=== PATIENT | female | born 1955 | race Caucasian/White ===

== ENCOUNTER 2017-01-04 00:33 | Observation (INO) | payer MEDICARE ==
[~2017-01-04] VITALS: Ht 152.4 cm; Wt 50.9 kg
[2017-01-04] VITALS (8 sets, daily range): BP systolic 114–172; BP diastolic 63–83; PULSE 61–70; RESP 16–18; TEMP 98.3–98.7; O2SAT 96–98
[2017-01-04] MEDS ORDERED: SODIUM CHLORID 0.9% 500 ML INJ 500 ML IV ONE (01:00)
[2017-01-04] MEDS ORDERED: MORPHINE SULFATE 4 MG/ML INJ IV PUSH ONE (01:00)
--- NOTE | 2017-01-04 01:01 | PD ---
HPI Chief Complaint: Chest Pain Time Seen by Provider: 00:45 Travel History International Travel<30 days: No Contact w/Intl Traveler<30days: No Traveled to known affect area: No History of Present Illness HPI Patient is a 61-year-old female with history of hypertension, hyperlipidemia, diabetes, coronary disease with cardiac stents, mechanical mitral valve currently on Coumadin who presents to emergency room with complaints of chest pain. Patient reports that she began having chest pain at an hour after she had dinner today. Reports the chest pain was substernal, reports that she felt a pressure to her chest with diaphoresis and nausea with no vomiting. Patient reports that she thought that her symptoms related to indigestion as she took a sublingual nitroglycerin with no relief of symptoms. Patient reports that she then began to have epigastric pain, reports that she did take a Tums and did feel little better. Patient reports that shortly thereafter, she began to have increased pains going to her back. Patient was concerned as she has history of coronary disease with history of cardiac stents in the past. Patient reports that she does see a prop setter in [facility], Dr. Nicolas. Patient reports that she him last week and reports that she had an echo performed which she was told was normal. Patient reports that she has no chest pain at this time, reports that she does have some back pain. Patient here for evaluation of her symptoms. PFSH Past Medical History Heart Rhythm Problems: Yes Cardiac Catheterization: Yes High Cholesterol: Yes Coronary Artery Disease: Yes Diabetes: Yes Hypertension: Yes Past Surgical History Cardiac Surgery: Yes (mechanical mitral valve repair) Coronary Stent: Yes Social History Tobacco Use: No Allergies-Medications (Allergen,Severity, Reaction): Coded Allergies: No Known Allergies (Unverified , 01/04/17) Reported Meds & Prescriptions Reported Meds & Active Scripts Active Reported Alprazolam 0.25 Mg Tab 0.25 Mg PO BID PRN Spironolactone 25 Mg Tab 25 Mg PO DAILY Magnesium Oxide 250 Mg Tab 400 Mg PO DAILY Atorvastatin (Atorvastatin Calcium) 20 Mg Tab 10 Mg PO HS Ambien (Zolpidem Tartrate) 5 Mg Tab 5 Mg PO HS PRN Metformin (Metformin HCl) 500 Mg Tab 500 Mg PO BIDPC With meals Losartan (Losartan Potassium) 25 Mg Tab 5 Mg PO DAILY Lasix (Furosemide) 20 Mg Tab 20 Mg PO DAILY Carvedilol 6.25 Mg Tab 6.25 Mg PO BID Digitek (Digoxin) 0.125 Mg Tab 0.125 Mg PO DAILY Gemfibrozil 600 Mg Tab 600 Mg PO BIDAC Take 30 minutes prior to breakfast and dinner. Aspirin 81 Mg Tabdr 81 Mg PO DAILY Coumadin (Warfarin) 5 Mg Tab 5 Mg PO E,,SAT,SUN Coumadin (Warfarin) 2.5 Mg Tab 2.5 Mg PO SUN, SUN, SUN Review of Systems General / Constitutional: No: Fever Eyes: No: Visual changes HENT: No: Headaches Cardiovascular: Positive: Chest Pain or Discomfort, Diaphoresis Respiratory: Positive: Shortness of Breath Gastrointestinal: Positive: Nausea, No: Abdominal Pain Genitourinary: No: Dysuria Musculoskeletal: No: Pain Skin: No Rash Neurologic: No: Weakness Psychiatric: No: Depression Endocrine: No: Polydipsia Hematologic/Lymphatic: No: Easy Bruising Physical Exam Narrative GENERAL: No acute distress, nontoxic SKIN: Warm and dry. HEAD: Atraumatic. Normocephalic. EYES: Pupils equal and round. No scleral icterus. No injection or drainage. ENT: No nasal bleeding or discharge. Mucous membranes pink and moist. NECK: Trachea midline. No JVD. CARDIOVASCULAR: Regular rate and rhythm. Patient with 4/6 systolic murmur RESPIRATORY: No accessory muscle use. Clear to auscultation. Breath sounds equal bilaterally. GASTROINTESTINAL: Abdomen soft, non-tender, nondistended. Hepatic and splenic margins not palpable. MUSCULOSKELETAL: No obvious deformities. No clubbing. No cyanosis. No edema. NEUROLOGICAL: Awake and alert. No obvious cranial nerve deficits. Motor grossly within normal limits. Normal speech. PSYCHIATRIC: Appropriate mood and affect; insight and judgment normal. Data Data Last Documented VS Vital Signs Date Time Temp Pulse Resp B/P Pulse Ox O2 Delivery O2 Flow Rate FiO2 01/04/17 02:07 65 16 118/65 98 Room Air Orders B-Type Natriuretic Peptide (01/04/17 00:52) Ckmb (Isoenzyme) Profile (01/04/17 00:52) Complete Blood Count With Diff (01/04/17 00:52) Comprehensive Metabolic Panel (01/04/17 00:52) Magnesium (Mg) (01/04/17 00:52) Prothrombin Time / Inr (Pt) (01/04/17 00:52) Act Partial Throm Time (Ptt) (01/04/17 00:52) Troponin I (01/04/17 00:52) Lipase (01/04/17 00:52) Chest, Single Ap (01/04/17 00:52) Ecg Monitoring (01/04/17 00:52) Bilateral Bp Monitoring (01/04/17 00:52) Iv Access Insert/Monitor (01/04/17 00:52) Oximetry (01/04/17 00:52) Sodium Chlorid 0.9% 500 Ml Inj (Ns 500 M (01/04/17 01:00) Morphine Inj (Morphine Inj) (01/04/17 01:00) Ct Thorax/ Chest Wo Iv Contras (01/04/17 ) Ct Abd/Pel W/O Iv Contrast (01/04/17 ) Drug Screen, Random Urine (01/04/17 02:16) Aspirin (Aspirin) (01/04/17 03:00) Labs Laboratory Tests Test 01/04/17 00:45 White Blood Count 9.3 TH/MM3 Red Blood Count 3.92 MIL/MM3 Hemoglobin 11.4 GM/DL Hematocrit 34.0 % Mean Corpuscular Volume 86.6 FL Mean Corpuscular Hemoglobin 29.0 PG Mean Corpuscular Hemoglobin 33.5 % Concent Red Cell Distribution Width 15.5 % Platelet Count 217 TH/MM3 Mean Platelet Volume 11.0 FL CBC Comment AUTO DIFF Differential Total Cells 100 Counted Neutrophils % (Manual) 78 % Lymphocytes % 11 % Monocytes % 2 % Eosinophils % 9 % Neutrophils # (Manual) 7.3 TH/MM3 Differential Comment FINAL DIFF MANUAL Atypical Lymphocytes % Platelet Estimate NORMAL Platelet Morphology Comment NORMAL Ovalocytes 1+ Prothrombin Time 19.6 SEC Prothromb Time International 1.7 RATIO Ratio Activated Partial 37.0 SEC Thromboplast Time Sodium Level 139 MEQ/L Potassium Level 4.3 MEQ/L Chloride Level 100 MEQ/L Carbon Dioxide Level 28.4 MEQ/L Anion Gap 11 MEQ/L Blood Urea Nitrogen 46 MG/DL Creatinine 1.80 MG/DL Estimat Glomerular Filtration 29 ML/MIN Rate Random Glucose 191 MG/DL Calcium Level 9.1 MG/DL Magnesium Level 2.2 MG/DL Total Bilirubin 0.5 MG/DL Aspartate Amino Transf 21 U/L (AST/SGOT) Alanine Aminotransferase 31 U/L (ALT/SGPT) Alkaline Phosphatase 59 U/L Total Creatine Kinase 50 U/L Troponin I LESS THAN 0.02 NG/ML B-Type Natriuretic Peptide 100 PG/ML Total Protein 8.5 GM/DL Albumin 4.5 GM/DL Lipase 773 U/L [facility] Medical Decision Making Medical Screen Exam Complete: Yes Emergency Medical Condition: Yes Interpretation(s) EKG at 0038: Normal sinus rhythm at 67 beats minute, QT/QTc 372/384, nonspecific ST segment changes Vital Signs Date Time Temp Pulse Resp B/P Pulse Ox O2 Delivery O2 Flow Rate FiO2 01/04/17 00:49 69 172/83 Differential Diagnosis ACS, arrhythmia, GERD, aortic dissection, PE Narrative Course Patient is a 61-year-old female who presents to emergency room with complaints of chest pain. Patient reports that she began having chest pain at an hour after she had dinner today. Reports the chest pain was substernal, reports that she felt a pressure to her chest with diaphoresis and nausea with no vomiting. Patient reports that she thought that her symptoms related to indigestion as she took a sublingual nitroglycerin with no relief of symptoms. Patient reports that she then began to have epigastric pain, reports that she did take a Tums and did feel little better. Patient reports that shortly thereafter, she began to have increased pains going to her back. Patient was concerned as she has history of coronary disease with history of cardiac stents in the past. Patient reports that she does see a prop setter in [facility] , Dr. Nicolas. Patient reports that she him last week and reports that she had an echo performed which she was told was normal. Patient reports that she has no chest pain at this time, reports that she does have some back pain. EKG obtained upon presentation to the emergency room, patient denies chest pain at this time, reports that she is having back pain. She was placed on a contract loader. Labs as well as x-ray of the chest ordered. CT ordered for evaluation of possible aortic dissection given her chest pain going to her back. Laboratory Tests Test 01/04/17 00:45 White Blood Count 9.3 TH/MM3 (4.0-11.0) Red Blood Count 3.92 MIL/MM3 (4.00-5.30) Hemoglobin 11.4 GM/DL (11.6-15.3) Hematocrit 34.0 % (35.0-46.0) Mean Corpuscular Volume 86.6 FL (80.0-100.0) Mean Corpuscular Hemoglobin 29.0 PG (27.0-34.0) Mean Corpuscular Hemoglobin 33.5 % Concent (32.0-36.0) Red Cell Distribution Width 15.5 % (11.6-17.2) Platelet Count 217 TH/MM3 (150-450) Mean Platelet Volume 11.0 FL (7.0-11.0) CBC Comment AUTO DIFF Differential Total Cells 100 Counted Neutrophils % (Manual) 78 % (16-70) Lymphocytes % 11 % (9-44) Monocytes % 2 % (0-8) Eosinophils % 9 % (0-4) Neutrophils # (Manual) 7.3 TH/MM3 (1.8-7.7) Differential Comment FINAL DIFF MANUAL Atypical Lymphocytes % (0-0) Platelet Estimate NORMAL (NORMAL) Platelet Morphology Comment NORMAL (NORMAL) Ovalocytes 1+ (NORMAL) Prothrombin Time 19.6 SEC (9.8-11.6) Prothromb Time International 1.7 RATIO Ratio Activated Partial 37.0 SEC Thromboplast Time (24.3-30.1) Sodium Level 139 MEQ/L (136-145) Potassium Level 4.3 MEQ/L (3.5-5.1) Chloride Level 100 MEQ/L (98-107) Carbon Dioxide Level 28.4 MEQ/L (21.0-32.0) Anion Gap 11 MEQ/L (5-15) Blood Urea Nitrogen 46 MG/DL (7-18) Creatinine 1.80 MG/DL (0.50-1.00) Estimat Glomerular Filtration 29 ML/MIN (>89) Rate Random Glucose 191 MG/DL (74-106) Calcium Level 9.1 MG/DL (8.5-10.1) Magnesium Level 2.2 MG/DL (1.5-2.5) Total Bilirubin 0.5 MG/DL (0.2-1.0) Aspartate Amino Transf 21 U/L (15-37) (AST/SGOT) Alanine Aminotransferase 31 U/L (10-53) (ALT/SGPT) Alkaline Phosphatase 59 U/L (45-117) Total Creatine Kinase 50 U/L (26-192) Troponin I LESS THAN 0.02 NG/ML (0.02-0.05) B-Type Natriuretic Peptide 100 PG/ML (0-100) Total Protein 8.5 GM/DL (6.4-8.2) Albumin 4.5 GM/DL (3.4-5.0) Lipase 773 U/L (73-393) Last Impressions Chest X-Ray 01/04/17 0052 Signed Impressions: Service Date/Time: December 00:58 - CONCLUSION: No acute cardiopulmonary disease identified. Bernard Arana MD Chest CT 01/04/17 0000 Signed Impressions: Service Date/Time: December 01:47 - CONCLUSION: 1. Diffuse aortic calcification and coronary artery calcification. Aortic diameter are within normal limits. 2. Mild pulmonary emphysema and lower lobe atelectasis. Bernard Arana MD patient feeling much better at this time, cp free. i did review all labs and studies with patient in detail. reports that as far as her kidneys are concerned , her recent labs did show elevated kidney numbers. plan to obs for chest pain case reviewed with dr santana who accepts pt to service Diagnosis Primary Impression: Chest pain Qualified Code: R07.9 - Chest pain, unspecified type Additional Impressions: Renal insufficiency Subtherapeutic anticoagulation Admitting Information Admitting Physician Requests: Observation Chrissy Gong DO Jan 04, 2017 01:01 Chrissy Gong DO Jan 04, 2017 01:01
[2017-01-04] MEDS ORDERED: AMBI5TAB PO (01:02)
[2017-01-04] MEDS ORDERED: COUM5TAB PO (01:02)
[2017-01-04] MEDS ORDERED: ALPR1TAB3 PO (01:02)
[2017-01-04] MEDS ORDERED: COUM2.5T PO (01:02)
[2017-01-04] MEDS ORDERED: FURO1TAB62 PO (01:02)
[2017-01-04] MEDS ORDERED: CARV6.252 PO (01:02)
[2017-01-04] MEDS ORDERED: DIGO1TAB59 PO (01:02)
[2017-01-04] MEDS ORDERED: SPIR25TA PO (01:02)
[2017-01-04] MEDS ORDERED: MAGN250T11 PO (01:02)
[2017-01-04] MEDS ORDERED: GEMF600T PO (01:02)
[2017-01-04] MEDS ORDERED: METF500T PO (01:02)
[2017-01-04] MEDS ORDERED: LOSA25TA PO (01:02)
[2017-01-04] MEDS ORDERED: ASPI1TAB69 PO (01:02)
[2017-01-04] MEDS ORDERED: ATOR20TA15 PO (01:02)
[2017-01-04 01:18] LABS: MEAN CELL VOLUME 86.6 FL (80.0-100.0); MEAN CORPUSCULAR HGB CONC 33.5 % (32.0-36.0); PLATELET COUNT 217 TH/MM3 (150-450); RED BLOOD COUNT 3.92 MIL/MM3 (4.00-5.30); RED CELL DISTRIBUTION WIDTH 15.5 % (11.6-17.2); WHITE BLOOD COUNT 9.3 TH/MM3 (4.0-11.0)
--- NOTE | 2017-01-04 01:21 | RADHPO ---
EXAM DATE/TIME: 01/04/2017 00:58 [facility] COMPARISON: No previous studies available for comparison. INDICATIONS : Chest pain starting today MEDICAL HISTORY : Cardiovascular disease. SURGICAL HISTORY : CABG. Heart valve replacement ENCOUNTER: Initial ACUITY: 1 day PAIN SCORE: 6/10 LOCATION: Bilateral chest FINDINGS: Single AP view of the chest. Median sternotomy wires are present. The lungs are clear. Cardiomediasti nal silhouette within normal limits. No evidence of pleural effusion or pneumothorax. CONCLUSION: No acute cardiopulmonary disease identified. Bernard Arana MD on January 04, 2017 at 1:19 Board Certified Radiologist. This report was verified electronically.
[2017-01-04] MEDS ORDERED: ALPR0.25 PO (01:22)
[2017-01-04 01:27] LABS: CHLORIDE 100 MEQ/L (98-107); POTASSIUM 4.3 MEQ/L (3.5-5.1); SODIUM (NA) 139 MEQ/L (136-145)
[2017-01-04 01:31] LABS: ANION GAP 11 MEQ/L (5-15); BICARBONATE 28.4 MEQ/L (21.0-32.0); BLOOD UREA NITROGEN 46 MG/DL (7-18); MAGNESIUM 2.2 MG/DL (1.5-2.5)
[2017-01-04 01:33] LABS: INTERNATIONAL NORMALIZED RATIO 1.7 RATIO; PROTHROMBIN TIME - PATIENT 19.6 SEC (9.8-11.6)
[2017-01-04 01:34] LABS: ALT (GPT) 31 U/L (10-53); AST (GOT) 21 U/L (15-37); GLOMERULAR FILTRATION RATE 29 ML/MIN (>89)
[2017-01-04 01:36] LABS: TOTAL BILIRUBIN ADULT 0.5 MG/DL (0.2-1.0)
[2017-01-04 01:37] LABS: ALKALINE PHOSPHATASE 59 U/L (45-117)
[2017-01-04 01:46] LABS: HEMO FLAGS AUTO DIFF
[2017-01-04 01:48] LABS: CREATINE KINASE 50 U/L (26-192)
[2017-01-04 02:19] LABS: EOSINOPHILS 9 % (0-4); NEUTROPHIL # MANUAL DIFF 7.3 TH/MM3 (1.8-7.7); POLYS (SEG NEUTROPHILS) 78 % (16-70); WBC DIFF SAMPLE 100
[2017-01-04 02:21] LABS: OVALOCYTES 1+ (NORMAL); PLATELET ESTIMATE SMEAR NORMAL (NORMAL); PLATELET MORPHOLOGY NORMAL (NORMAL); SCAN/DIFF FINAL DIFF MANUAL
--- NOTE | 2017-01-04 02:37 | RADHPO ---
EXAM DATE/TIME: 01/04/2017 01:47 [facility] COMPARISON: No previous studies available for comparison. INDICATIONS : Substernal chest pain that radiates to back and epigastric abdomen. Evaluate for aneurysm and diss ection. RADIATION DOSE: 8.42 CTDIvol (mGy) MEDICAL HISTORY : Hypertension. Diabetes mellitus type 2. SURGICAL HISTORY : CABG Mitral valce repair and replacement. ENCOUNTER: Initial ACUITY: 1 day PAIN SCALE: 5/10 LOCATION: chest TECHNIQUE: Volumetric scanning of the chest was performed. Using automated exposure control and adjustment of t he mA and/or kV according to patient size, radiation dose was kept as low as reasonably achievable to obtain optimal diagnostic quality images. FINDINGS: LUNGS: Mild opacity at the dependent lung bases likely representing atelectasis. Mild pulmonary parenchymal emphysema. PLEURAE: There is no pleural thickening or pleural effusion. MEDIASTINUM: Diffuse aortic calcification. Left subclavian stent. Aortic diameter is within normal limits. Noncont rast CT is not sensitive for detection of aortic dissection. Multiple approximately 1 cm mediastinal lymph nodes, likely reactive. Coronary artery calcifications noted. AXILLAE: Within normal limits. No lymphadenopathy. MUSCULOSKELETAL: Within normal limits for patient age. MISCELLANEOUS: Abdomen will be fully described on abdomen CT report. CONCLUSION: 1. Diffuse aortic calcification and coronary artery calcification. Aortic diameter are within normal limits. 2. Mild pulmonary emphysema and lower lobe atelectasis. Bernard Arana MD on January 04, 2017 at 2:31 Board Certified Radiologist. This report was verified electronically.
--- NOTE | 2017-01-04 02:43 | RADHPO ---
EXAM DATE/TIME: 01/04/2017 01:47 [facility] COMPARISON: No previous studies available for comparison. INDICATIONS : Substernal chest pain that radiates to epigastric abdomen. Evaluate aneurysm and dissection. ORAL CONTRAST: No oral contrast ingested. RADIATION DOSE: 8.42 CTDIvol (mGy) ; Combined studies - Thorax/Abdomen/Pelvis MEDICAL HISTORY : Diabetes mellitus type 2. Hypertension. SURGICAL HISTORY : CABG Mitral valve repair and replacement. ENCOUNTER: Initial ACUITY: 1 day PAIN SCALE: 5/10 LOCATION: epigastric abdomen TECHNIQUE: Volumetric scanning of the abdomen and pelvis was performed. Using automated exposure control and ad justment of the mA and/or kV according to patient size, radiation dose was kept as low as reasonably achievable to obtain optimal diagnostic quality images. FINDINGS: LOWER LUNGS: Lower lobe atelectasis. LIVER: Homogeneous density without lesion. There is no dilation of the biliary tree. No calcified gallston es. SPLEEN: Scattered rounded hypodensities in the spleen with the largest measuring 1.3 cm centrally. Nonspecifi c but statistically most likely to represent cysts or hemangiomas. PANCREAS: Within normal limits. KIDNEYS: Normal in size and shape. There is no mass, stone, or hydronephrosis. ADRENAL GLANDS: Within normal limits. VASCULAR: Diffuse aortic calcification. Aortic diameter are within normal limits. BOWEL/MESENTERY: No evidence of bowel dilatation. No free air or free fluid. Appendix not identified. ABDOMINAL WALL: Within normal limits. RETROPERITONEUM: There is no lymphadenopathy. BLADDER: No wall thickening or mass. REPRODUCTIVE: Within normal limits. INGUINAL: There is no lymphadenopathy or hernia. MUSCULOSKELETAL: Within normal limits for patient age. CONCLUSION: 1. No acute findings in the abdomen and pelvis. 2. Scattered nonspecific hypodensities in the spleen. These findings could be evaluated with greater specificity using contrast-enhanced MRI abdomen. 3. Diffuse atherosclerotic disease. Bernard Arana MD on January 04, 2017 at 2:35 Board Certified Radiologist. This report was verified electronically.
[2017-01-04] MEDS ORDERED: ASPIRIN 325 MG TAB PO ONE (03:00)
[2017-01-04] MEDS ORDERED: SODIUM CHLORIDE 0.9% FLUSH 5 ML FLUSH IVF PRN (04:45)
[2017-01-04] MEDS ORDERED: ALPRAZolam 0.25 MG TAB PO PRN (05:45)
[2017-01-04 05:53] LABS: CREATINE KINASE 41 U/L (26-192)
[2017-01-04] MEDS ORDERED: GLUCAGON 1 MG/ML VIAL OTHER PRN (06:00)
[2017-01-04] MEDS ORDERED: DEXTROSE 50% IN WATER 50 ML VIAL(D50) IV PUSH PRN (06:00)
[2017-01-04] MEDS: INSULIN ASPART SUPPLEMENTAL SCALE SQ SCH ×2 (06:29→11:00)
[2017-01-04] MEDS ORDERED: GEMFIBROZIL 600 MG TAB PO SCH (07:00)
[2017-01-04] MEDS ORDERED: DIGOXIN 0.125 MG TAB PO SCH (09:00)
[2017-01-04] MEDS ORDERED: ASPIRIN EC 81 MG TABEC PO SCH (09:00)
[2017-01-04] MEDS ORDERED: SODIUM CHLORIDE 0.9% FLUSH 5 ML FLUSH IVF SCH (09:00)
[2017-01-04] MEDS ORDERED: LOSARTAN 25 MG TAB PO SCH (09:00)
[2017-01-04] MEDS ORDERED: CARVEDILOL 6.25 MG TAB PO SCH (09:00)
[2017-01-04] MEDS ORDERED: SPIRONOLACTONE 25 MG TAB PO SCH (09:00)
[2017-01-04] MEDS ORDERED: FUROSEMIDE 20 MG TAB PO SCH (09:00)
[2017-01-04 10:08] LABS: CREATINE KINASE 41 U/L (26-192)
--- NOTE | 2017-01-04 11:47 | HHI.HP ---
[facility] Service [facility] Primary Care Physician Non-Staff Admission Diagnosis Chest pain Diagnoses: (1) Chest pain Diagnosis: Principal (2) Azotemia Diagnosis: Principal (3) Coronary artery disease Diagnosis: Secondary (4) History of myocardial infarction Diagnosis: Secondary (5) Hypertension Diagnosis: Secondary (6) Chronic atrial fibrillation Diagnosis: Secondary (7) Hyperlipidemia Diagnosis: Secondary Chief Complaint: Chest discomfort Travel History International Travel<30 Days: No Contact w/Intl Traveler <30 Da: No Traveled to Known Affected Are: No History of Present Illness 61-year-old female with rather complex cardiac history with hypertension, hyperlipidemia, multiple myocardial infarctions, cardiac bypass surgery, mitral valve replacement who presented to hospital because of chest and abdominal discomfort. Patient states that she has normal state of health until yesterday after she ate dinner. She didn't approximate 6 PM and then roughly 1-2 hours later she started developing a pressure sensation in the middle part of her chest without any radiation, nausea, vomiting, diaphoresis, shortness of breath, dyspnea. The pressure sensation got worse where she started getting epigastric and abdominal discomfort with pressure. She took a nitroglycerin at home without any relief of her discomfort. She did take a Tums with improvement of the abdominal distention and discomfort. Patient states that he started developing pain in her back and she was concerned because her previous myocardial infarction presented with back pain. Because of those reasons the patient came to the hospital for evaluation. Patient had workup done emergency department did not have any acute abnormalities to indicate acute myocardial infarction. Patient recommended observation chest pain center. Upon evaluating the patient this morning she states that her symptoms have completely resolved. They indicate that the lens blank gauger does not want her to undergo any stress test. The patient states that she has had previous nuclear stress test with adverse reactions. She was told by her lens blank gauger that even if she does have a positive stress test that there is nothing else that they can do for her get she has had a significant bypass surgery, open heart with mitral valve replacement. Patient and Family does not want to pursue any further testing at this time. Review of Systems Constitutional: DENIES: Diaphoretic episodes, Fatigue, Fever, Weight gain, Weight loss, Chills, Dizziness, Change in appetite, Night Sweats Eyes: DENIES: Blurred vision, Diplopia, Eye inflammation, Eye pain, Vision loss , Double Vision Ears, nose, mouth, throat: DENIES: Vertigo, Nasal discharge, Throat pain, Ear Pain, Running Nose, Sinus Pain Respiratory: DENIES: Apneas, Cough, Snoring, Wheezing, Hemoptysis, Sputum production, Shortness of breath Cardiovascular: COMPLAINS OF: Chest pain (pressure sensation), DENIES: Palpitations, Syncope, Dyspnea on Exertion, Lower Extremity Edema, Orthopnea Gastrointestinal: COMPLAINS OF: Abdominal pain (bloating sensation), DENIES: Black stools, Bloody stools, Constipation, Diarrhea, Nausea, Vomiting, Difficulty Swallowing, Anorexia Neurologic: DENIES: Abnormal gait, Headache, Localized weakness, Paresthesias, Seizures, Speech Problems, Tremor, Poor Balance Past Family Social History Past Medical History Hypertension Hyperlipidemia Chronic atrial fibrillation Coronary artery disease Thyroid dysfunction, undergoing outpatient workup Diabetes Past Surgical History Coronary artery bypass surgery 3 vessel Mechanical mitral valve replacement Cardiac catheterization with stenting Appendectomy Ectopic removal Reported Medications Reported Meds & Active Scripts Active Reported Alprazolam 0.25 Mg Tab 0.25 Mg PO BID PRN Spironolactone 25 Mg Tab 25 Mg PO DAILY Magnesium Oxide 250 Mg Tab 400 Mg PO DAILY Atorvastatin (Atorvastatin Calcium) 20 Mg Tab 10 Mg PO HS Ambien (Zolpidem Tartrate) 5 Mg Tab 5 Mg PO HS PRN Metformin (Metformin HCl) 500 Mg Tab 500 Mg PO BIDPC With meals Losartan (Losartan Potassium) 25 Mg Tab 5 Mg PO DAILY Lasix (Furosemide) 20 Mg Tab 20 Mg PO DAILY Carvedilol 6.25 Mg Tab 6.25 Mg PO BID Digitek (Digoxin) 0.125 Mg Tab 0.125 Mg PO DAILY Gemfibrozil 600 Mg Tab 600 Mg PO BIDAC Take 30 minutes prior to breakfast and dinner. Aspirin 81 Mg Tabdr 81 Mg PO DAILY Coumadin (Warfarin) 5 Mg Tab 5 Mg PO E,,SAT,SUN Coumadin (Warfarin) 2.5 Mg Tab 2.5 Mg PO MON, WED, FRI Allergies: Coded Allergies: No Known Allergies (Unverified , 01/04/17) Family History Reviewed and significant for heart disease, brother with cancer Social History Patient denies any tobacco, alcohol or illicit drugs Physical Exam Vital Signs Vital Signs Date Time Temp Pulse Resp B/P Pulse Ox O2 Delivery O2 Flow Rate FiO2 01/04/17 08:00 98.7 67 16 117/63 98 01/04/17 08:00 96 21 01/04/17 07:12 61 01/04/17 04:38 97 01/04/17 04:17 70 114/65 97 Room Air 01/04/17 02:07 65 16 118/65 98 Room Air 01/04/17 00:49 69 172/83 01/04/17 00:40 Room Air 01/04/17 00:39 172/83 166/78 Physical Exam GENERAL: Well-developed, well-nourished, in no acute distress. alert and orientated HEENT: Head is normocephalic without any lesions or masses noted. Facial features are symmetric. Eyes: Pupils equal round reactive to light. Extraocular muscles are intact. Conjunctivae were clear. Oropharyngeal: Pharynx without any erythema edema. Tongue is midline without deviation. Buccal mucosa is moist without any masses or lesions NECK: Supple without any masses. Trachea midline no deviation. No JVD, no bruits are appreciated CARDIAC: Irregular rhythm, irregular rate. S1/S2 are heard. 2/6 ejection murmur , no gallops or rubs. Valve click noted LUNGS: Clear to auscultation bilaterally. No wheeze, rhonchi or rales. No use of accessory muscles on inspiration or expiration. ABDOMEN: Soft, nontender. Nondistended. Bowel sounds heard in all 4 quadrants. No organomegaly or masses. Negative rebound, negative guarding EXTREMITIES: No edema, pulses are equal bilaterally. No cyanosis or clubbing NEUROLOGY: Mood and affect appear appropriate. Cranial nerves II through XII grossly intact. Muscle strength 5/5 in upper and lower extremities bilaterally. Deep tendon reflexes are 2+ in upper and lower extremities bilaterally. Laboratory Laboratory Tests Test 01/04/17 01/04/17 01/04/17 00:45 05:07 08:30 White Blood Count 9.3 Red Blood Count 3.92 Hemoglobin 11.4 Hematocrit 34.0 Mean Corpuscular Volume 86.6 Mean Corpuscular Hemoglobin 29.0 Mean Corpuscular Hemoglobin 33.5 Concent Red Cell Distribution Width 15.5 Platelet Count 217 Mean Platelet Volume 11.0 CBC Comment AUTO DIFF Differential Total Cells 100 Counted Neutrophils % (Manual) 78 Lymphocytes % 11 Monocytes % 2 Eosinophils % 9 Neutrophils # (Manual) 7.3 Differential Comment FINAL DIFF MANUAL Atypical Lymphocytes Platelet Estimate NORMAL Platelet Morphology Comment NORMAL Ovalocytes 1+ Prothrombin Time 19.6 Prothromb Time International 1.7 Ratio Activated Partial 37.0 Thromboplast Time Sodium Level 139 Potassium Level 4.3 Chloride Level 100 Carbon Dioxide Level 28.4 Anion Gap 11 Blood Urea Nitrogen 46 Creatinine 1.80 Estimat Glomerular Filtration 29 Rate Random Glucose 191 Calcium Level 9.1 Magnesium Level 2.2 Total Bilirubin 0.5 Aspartate Amino Transf 21 (AST/SGOT) Alanine Aminotransferase 31 (ALT/SGPT) Alkaline Phosphatase 59 Total Creatine Kinase 50 41 41 Troponin I LESS THAN 0.02 LESS THAN 0.02 LESS THAN 0.02 B-Type Natriuretic Peptide 100 Total Protein 8.5 Albumin 4.5 Lipase 773 Result Diagram: 01/04/17 0045 01/04/17 0045 Imaging Last Impressions Chest X-Ray 01/04/17 0052 Signed Impressions: Service Date/Time: December 00:58 - CONCLUSION: No acute cardiopulmonary disease identified. Bernard Arana MD Chest CT 01/04/17 0000 Signed Impressions: Service Date/Time: December 01:47 - CONCLUSION: 1. Diffuse aortic calcification and coronary artery calcification. Aortic diameter are within normal limits. 2. Mild pulmonary emphysema and lower lobe atelectasis. Bernard Arana MD Abdomen/Pelvis CT 01/04/17 0000 Signed Impressions: Service Date/Time: December 01:47 - CONCLUSION: 1. No acute findings in the abdomen and pelvis. 2. Scattered nonspecific hypodensities in the spleen. These findings could be evaluated with greater specificity using contrast-enhanced MRI abdomen. 3. Diffuse atherosclerotic disease. Bernard Arana MD Assessment and Plan Assessment and Plan Chest pain, atypical: Patient with increased risk factors to include age, female, history myocardial infarction, hypertension, hyperlipidemia, coronary artery disease, diabetes. Patient had been ruled out for any acute coronary event with serial cardiac enzymes which are negative, serial EKGs show atrial fibrillation without any changes. Discussed with the patient the need to pursue any underlying ischemia to include stress testing. Patient and family do not want to pursue that at this time. They state that her lens blank gauger's indicates that she should not undergo any stress testing. A lens blank gauger notified her that if there were any abnormalities nothing as could be done at this time due to her previous cardiac surgery. Patient and family are deferring further evaluation. I notified them of possible adverse outcomes to include acute myocardial infarction, upon leaving without full workup. They do understand. They're notified to follow-up with her lens blank gauger as soon as possible Azotemia, unknown whether acute versus chronic: Given the patient's medical history to be deduced that she has chronic kidney disease. Patient will need continued outpatient follow-up with her primary medical doctor. Hypertension, hyperlipidemia, chronic atrial fibrillation, coronary artery disease: Home medications have been continued. Continue anticoagulation. Patient will need continued outpatient follow-up by her primary medical doctor and lens blank gauger Diabetes: Metformin has been held. Accu-Cheks with sliding scale insulin DVT prevention: Patient is on Coumadin Written by Ronald Jonas PA-C, acting as scribe for Dr. Diane on 01/04/17 at 1215. The documentation accurately reflects the work and decisions performed face-to- face by Dr. Diane on 01/04/17 at 1215. Discharge disposition Discharge home in stable condition Activity: Ad nathanael. Diet: Healthy heart diet/diabetic diet Medications per medication reconciliation Follow-up with primary medical doctor in one week, lens blank gauger within the week Problem Qualifiers (1) Chest pain: Qualified Code: R07.9 - Chest pain, unspecified type (2) Coronary artery disease: Qualified Code: I25.10 - Coronary artery disease, angina presence unspecified, unspecified vessel or lesion type, unspecified whether little traverse or transplanted heart (3) Hypertension: Qualified Code: I15.9 - Secondary hypertension (4) Hyperlipidemia: Qualified Code: E78.5 - Hyperlipidemia, unspecified hyperlipidemia type Ronald Jonas Jan 04, 2017 11:47 Zarina Diane MD Jan 04, 2017 19:48
--- NOTE | 2017-01-04 11:49 | HHI.DCPOC ---
Discharge Care Plan Diagnosis: (1) Chest pain Goals to Promote Your Health * To prevent worsening of your condition and complications * To maintain your health at the optimal level Directions to Meet Your Goals Take your medications as prescribed Follow your dietary instruction Follow activity as directed Keep your appointments as scheduled Take your immunizations and boosters as scheduled If your symptoms worsen call your PCP, if no PCP go to Urgent Care Center or Emergency Room Smoking is Dangerous to Your Health. Avoid second hand smoke Call the 24-hour hour crisis hotline for domestic abuse at Ronald Jonas Jan 04, 2017 11:49
[2017-01-04] MEDS ORDERED: ATORVASTATIN 10 MG TAB PO SCH (21:00)
[2017-01-04] MEDS ORDERED: ATORVASTATIN 20 MG TAB PO SCH (21:00)
--- NOTE | 2017-01-04 21:07 | EKG ---
Date Performed: 01/04/2017 Time Performed: 08:34:04 PTAGE: 61 years EKG: Ectopica atrial rhythm PVC's Lateral ST-T changes may be due to myocardial ischemia Abnorma l ECG NO PREVIOUS TRACING Since previous tracing, no significant change noted DOCTOR: Traci Moreno Interpretating Date/Time 01/04/2017 21:07:46
--- NOTE | 2017-01-04 21:12 | EKG ---
Date Performed: 01/04/2017 Time Performed: 04:56:40 PTAGE: 61 years EKG: Ectopic atrial Rhythm with PVC(s). Possible inferior infarct - age undetermined Lateral ST- T changes may be due to myocardial ischemia Artifact Abnormal ECG Since PREVIOUS TRACING , no significant change noted DOCTOR: Traci Moreno Interpretating Date/Time 01/04/2017 21:11:19
--- NOTE | 2017-01-04 21:13 | EKG ---
Date Performed: 01/04/2017 Time Performed: 00:38:10 PTAGE: 61 years EKG: Sinus rhythm . Possible inferior infarct - age undetermined Lateral ST-T changes are nonspecific Abnormal ECG NO PREVIOUS TRACING DOCTOR: Traci Moreno Interpretating Date/Time 01/04/2017 21:12:34
== END 2017-01-04 13:04 | disposition home or self-care (01) ==
LOC: PHED 00:33 → PHEDA 03:07 → PH3A 04:23
PROVIDERS: ADMIT Hospitalist; ATTEND Hospitalist
DX: R07.89 Other chest pain (principal); R79.89 Other specified abnormal findings of blood chemistry; I12.9 Hypertensive chronic kidney disease with stage 1 through stage 4 chronic kidney disease, or unspecified chronic kidney disease; E11.22 Type 2 diabetes mellitus with diabetic chronic kidney disease; N18.9 Chronic kidney disease, unspecified; E78.00 Pure hypercholesterolemia, unspecified; I25.10 Atherosclerotic heart disease of native coronary artery without angina pectoris; I25.2 Old myocardial infarction; I48.2 Chronic atrial fibrillation; E78.5 Hyperlipidemia, unspecified; I10 Essential (primary) hypertension; Z95.1 Presence of aortocoronary bypass graft; Z95.2 Presence of prosthetic heart valve; Z79.84 Long term (current) use of oral hypoglycemic drugs; Z79.82 Long term (current) use of aspirin; Z79.01 Long term (current) use of anticoagulants; Z95.5 Presence of coronary angioplasty implant and graft
CPT/HCPCS: 71010; 71250; 74176; 80053; 82550; 82948; 83690; 83735; 83880; 84484; 85007; 85027; 85610; 85730; 93005; 96361; 96374; 99285; G0378; J2270; J7040